=== PATIENT | male | born 1975 | race Caucasian/White ===

== ENCOUNTER → 2018-07-20 16:52 | Outpatient (CLI) | payer OTHER, SELFPAY | PROVIDERS: Family Provider Internal Medicine; PCP Internal Medicine; Referring Provider Nurse Practitioner Adult Health; Visit Provider Nurse Practitioner Adult Health | DX: Z20.2 Contact with and (suspected) exposure to infections with a predominantly sexual mode of transmission (principal) ==

== ENCOUNTER → 2018-09-01 07:28 | Outpatient (CLI) | payer OTHER, SELFPAY ==
[2018-09-01 11:19] LABS: BUN 10 mg/dL (7-18); Creatinine, Serum 0.71 mg/dL (0.70-1.30); Glucose 67 mg/dL (74-106)
[2018-09-01 11:20] LABS: Anion Gap 8 (5-15); BUN/Creat Ratio 14.1 RATIO (10-20); Calcium,Total 8.6 mg/dL (8.5-10.1); Chloride 105 mmol/L (98-107); Cholesterol 181 mg/dL (200); EST Glomerular Filtration Rate 128 mL/min (>60); Est Glom Filt Rate - Afr Amer 155 mL/min (>60); High Density Lipoprotein 67 mg/dL; PSA,Total - Annual Screen 0.52 ng/mL (0.00-4.00); Potassium 3.8 mmol/L (3.5-5.1); Sodium Level 139 mmol/L (136-145); Thyroid Stim Hormone (TSH) 1.12 uIU/mL (0.358-3.74); Triglycerides 66 mg/dL; Very Low Density Lipoprotein 13 mg/dL (5-40)
[2018-09-01 12:32] LABS: Vitamin D,25 Hydroxy 20.2 ng/mL (29.95-100.01)
--- OUTSIDE RECORDS SUMMARY | 2018-11-05 14:33 | XMS RPT_ITS ---
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 LAB L501.1000 7-18 mg/dL Normal BUN 10 LAB L501.1100 0.70-1.30 mg/dL Normal CREAT,SERUM 0.71 Result Comment: The validity of the calculated GFR AND GFRAA in patients over 70 years has not been determined. Clinical correlation is essential. LAB L501.1110 >60 mL/min Normal EST GFR 128 Result Comment: Non- GFR Calc LAB L501.1115 >60 mL/min Normal EST GFR - AA 155 Result Comment: GFR Calc LAB L501.1300 10-20 RATIO Normal BUN/CRE 14.1 LAB L501.2200 8.5-10.1 mg/dL CA Normal 8.6 LAB L501.5300 136-145 mmol/L NA Normal 139 LAB L501.5600 3.5-5.1 mmol/L K Normal 3.8 LAB L501.5900 98-107 mmol/L CL Normal 105 LAB L501.6100 21.0-32.0 mmol/L Normal CO2 26.0 LAB L501.6200 5-15 Normal GAP 8 Performed By: #### L500.2500, L500.4100, L501.9520, L501.9910, L506.1000, L509.3000 #### [facility] [address] [place], [place], [id number] LIPID PROFILE Collected: 09/01/2018 Status: F Source: [place] 7:32 AM [facility] REPOSITORY TYPE CODE TESTS RESULT OUT OF RANGE REFERENCE UNITS LAB L501.4900 200 mg/dL Normal CHOL 181 Result Comment: <200 mg/dL Desirable 200-240 mg/dL Borderline >240 mg/dL High Risk LAB L501.5000 mg/dL Normal TRIG 66 Result Comment: The drugs N-Acetylcysteine and Metamizole may falsely depress this assay. Serum Triglycerides Reference Interval Normal <150 mg/dL Borderline high 150 - 199 mg/dL High 200 - 499 mg/dL Very High > or = 500 mg/dL LAB L501.6400 mg/dL Normal HDL 67 Result Comment: The drugs N-Acetylcysteine and Metamizole may falsely depress this assay. Reference Range HDL <40 mg/dL Low HDL Cholesterol HDL >or= 60 mg/dL High HDL Cholesterol LAB L501.6500 0-130 mg/dL Normal LDL 101 LAB L501.6600 5-40 mg/dL Normal VLDL 13 Performed By: #### L500.2500, L500.4100, L501.9520, L501.9910, L506.1000, L509.3000 #### [facility] [address] [place], [place], [id number] THYROID STIM HORMONE Collected: 09/01/2018 Status: F Source: S[place]ERSET (TSH) 7:32 AM [facility] REPOSITORY TYPE CODE TESTS RESULT OUT OF RANGE REFERENCE UNITS LAB L501.9520 0.358-3.74 uIU/mL Normal TSH 1.12 Performed By: #### L500.2500, L500.4100, L501.9520, L501.9910, L506.1000, L509.3000 #### [facility] [address] [place], [address] PSA,TOTAL - ANNUAL Collected: 09/01/2018 Status: F Source: SH[place] SCREEN 7:32 AM [facility] REPOSITORY TYPE CODE TESTS RESULT OUT OF RANGE REFERENCE UNITS LAB L501.9910 0.00-4.00 ng/mL Normal PSA,TOT 0.52 SCREEN Result Comment: This test was performed using the TPSA assay method for the [employer] chemistry system. Values obtained with different assay methods cannot be used interchangably. When changing PSA assays in the course of monitoring a patient, additional sequential testing should be carried out to confirm baseline values. Performed By: #### L500.2500, L500.4100, L501.9520, L501.9910, L506.1000, L509.3000 #### [facility] [address] [place], [address] VITAMIN D,25 HYDROXY Collected: 09/01/2018 Status: F Source: SHRUTI 7:32 AM [facility] REPOSITORY TYPE CODE TESTS RESULT OUT OF REFERENCE UNITS RANGE LAB L506.1000 29.95-100.01 ng/mL Low Vitamin D 20.2 25-OH Result Comment: Vitamin D 25(OH) Status Range Deficiency <20 ng/mL (50nmol/L) Insuffciency 20 - 30 ng/mL (50 - 75 nmol/L) Sufficiency 30 - 100 ng/mL (75 - 250 nmol/L) Toxicity >100 ng/mL (>250 nmol/L) Performed By: #### L500.2500, L500.4100, L501.9520, L501.9910, L506.1000, L509.3000 #### [facility] [address] [place], [address] TESTOSTERONE, SERUM TOTAL Collected: 09/01/2018 Status: F Source: SHRUTI 7:32 AM [facility] REPOSITORY TYPE CODE TESTS RESULT OUT OF REFERENCE UNITS RANGE LAB L509.3000 ng/dL Testosterone Normal 752.93 Result Comment: NORMAL REFERENCE RANGES MALE AGE <50 123.06 - 813.86 ng/dL MALE AGE >50 89.98 - 780.10 ng/dL FEMALE PREMENOPAUSE AGE 21 - 60 9.01 - 47.94 ng/dL FEMALE POSTMENOPAUSE AGE 45 - 89 <7.00 - 45.62 ng/dL REFERENCE RANGE AND METHODOLOGY CHANGED 08/03/2017 Performed By: #### L500.2500, L500.4100, L501.9520, L501.9910, L506.1000, L509.3000 #### [facility] [address] [place], [address] MISCELLANEOUS LAB Collected: 07/20/2018 Status: F Source: SHRUTI PROCEDURE 9:00 AM [facility] REPOSITORY Order Comment: Comments: [id number] URINE UREAPLASMA/MYCOPLASMA Test(s) Ordered: [id number] URINE UREAPLASMA/MYCOPLASMA TYPE CODE TESTS RESULT OUT OF RANGE REFERENCE UNITS LAB L801.1541 Normal [facility] LAB TEST Result Comment: TEST RESULT UNITS REF INTERVAL Ureaplasma/Mycoplasma hominis Ureaplasma urealyticum Negative Mycoplasma hominis Negative TESTING PERFORMED AT [facility]. ORIGINAL REPORT ON FILE IN LAB CONTAINS ADDITIONAL TEST SITE INFORMATION. Performed By: #### L801.1541 #### [facility] [address] [place], [address] ALLERGIES ALLERGIES No Allergies Records FoundENCOUNTERS ENCOUNTERS ADMIT/DISCHARGE ACCOUNT ADMITTING ENCOUNTER LOCATION SOURCE NUMBER CLASS 09/01/2018 [id number] Ambulatory [facility] 07/20/2018 [id number] [facility] ing:[facility] Repository PAYERS PAYERS ENCOUNTER GUARANTOR PAYER SUBSCRIBER SOURCE 09/01/2018 ETHAN Gonsalez Primary ETHAN Reid [id number] Insurance:CIGNAPolicy BARNARDDOB: [facility] SCOVEL Number: [id number] [id number] Repository [address]Qyu: [phone]) Date:[id number] [phone] () [place], [place] [address]DJ: 09/01/2018 Secondary NOT GIVENUNK [place] Insurance:SELF PAY [facility] Number: Effective Repository Date:2018-09-01 07/20/2018 ETHAN Gonsalez Primary ETHAN Reid [id number] Insurance:CIGNAPolshamay [facility]: [id number], [place] [id number] Repository [address]Utn: [phone]) Date:[id number] [phone] () [id number], [place] [address]LI: 07/20/2018 Secondary NOT GIVENUNK [place] Insurance:SELF PAY [facility] Number: Effective Repository Date:2018-07-20
== END ==
PROVIDERS: Family Provider Family Medicine; PCP Family Medicine; Referring Provider Family Medicine; Visit Provider Family Medicine
DX: Z13.220 Encounter for screening for lipoid disorders (principal); F32.9 Major depressive disorder, single episode, unspecified; N52.9 Male erectile dysfunction, unspecified
CPT/HCPCS: 36415; 80048; 80061; 82306; 84153; 84403; 84443; G0103

== ENCOUNTER → 2018-09-12 17:22 | Outpatient (CLI) | payer OTHER, SELFPAY ==
--- NOTE | 2018-09-12 17:25 | RAD_ITS ---
STUDY: X-RAY - CERVICAL SPINE REASON FOR EXAM: Male, 43 years old. Neck pain TECHNIQUE: 7 view(s) of the cervical spine were obtained including flexion and extension lateral views. COMPARISON: None FINDINGS: Normal anterior atlantoaxial articulation. Normal odontoid process. Normal cervical lordosis. Normal vertebral bodies. Minimal spurring at the mid cervical endplates. Normal disc space heights. Normal visualized intervertebral neuroforamina. The soft tissue structures are unremarkable. Slightly limited flexion. RAD/Cerv Spine Obl/Flex/Ext Comp IMPRESSION: No acute bony injury of the cervical spine. Limited flexion. Electronically Signed: Anthony Corrales DO at 23:58 EST Tel [phone], Service support ,
== END ==
PROVIDERS: Family Provider Family Medicine; PCP Family Medicine; Referring Provider Family Medicine; Visit Provider Family Medicine
DX: M54.2 Cervicalgia (principal)
CPT/HCPCS: 72052

== ENCOUNTER 2018-09-25 15:30 | Outpatient (RCR) | payer OTHER, SELFPAY ==
--- NOTE | 2018-09-20 10:14 | HP.PTEVAL_ITS ---
Patient's Visit Information ETHAN HEAD is a 43 year old M referred to Physical Therapy by Jamel Noel MD with a diagnosis of NECK PAIN. Date of Evaluation: 09/20/18 Physical Therapist: Ananth Ortega PT, Cert MDT, OCS - Visit Plan Frequency: 2x /Week Duration: 4 Weeks Plan: MANUAL THERAPY OA/AA,THORACIC,US/ICTX 16#-22#,CERVICAL ROM,POSTURAL EX'S - Subjective Findings: This 43 y/o male presenst to physical therapy with neck pain about year. Patient has pain located cervical pain with radiating symptoms in shoulders.Pain desribed as tightness and sharp pain to left . Patient pain worse when driving and turning to left,lifting with arms [place]. Patient denies parathesia/tingling. Denies ZAZUETA,diziness,tinnutus. patient sleeping okay. No prior treatment. No trauma. Patient seen Dr solis PT did x-rays. Pain in cervical spine affects working out. Patient pain affects QOL and function. 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 SOCAIL: single - Pain Bilateral Neck Pain Intensity (Out of 10): 3 Pain Intensity Range: 10 Bilateral Scapula Pain Intensity (Out of 10): 4 Pain Intensity Range: 10 - Objective POSTURE: mild foward head. NEURO: intact ,reflexes C5-6-7 2/3 ,MYTOMES intact. PALAPTION: tender UT/levator. CERVICAL ROM: flexion min/mod tight,extension min/mod tight,left rotation mod loss ,right min loss,retraction WFL,protrusion min loss. MMT: 4/5 grossly - Special Tests C/S Radiculapathy - Left Upper limb tension test: Negative C/S Radiculapathy - Right Upper limb tension test: Negative C/S Radiculapathy - Left Spurlings: Positive C/S Radiculapathy - Right Spurlings: Negative C/S Radiculapathy - Left Cervical distraction: Negative C/S Radiculapathy - Right Cervical distraction: Negative C/S Radiculapathy - Left Relief test: Negative C/S Radiculapathy - Right Relief test: Negative Sharp Shelton: Negative Vertebral Artery Test: Negative Alar Ligament Test: Negative Cervical Sitting: Protrusion - Mechanical Response: No effect Cervical Sitting: Protrusion - Symptoms During Testing: No effect Cervical Sitting: Protrusion - Symptoms After Testing: No effect Cervical Sitting: Retraction - Mechanical Response: No effect Cervical Sitting: Retraction - Symptoms During Testing: No effect Cervical Sitting: Retraction - Symptoms After Testing: No effect - Goals Goal 1:: Independant with HEP Goal Time Frame: 4-6 Weeks Goal 2:: Independant with posture for ADL'S Goal Time Frame: 4-6 Weeks Goal 3:: Decrease cervical pain by 60% or greater to improve function Goal Time Frame: 4-6 Weeks Goal 4:: Patient to improve cervical ROM to improve function of recovery especially to left to improve driving Goal Time Frame: 4-6 Weeks Goal 5:: Patient to improve cervical ARNOLDO score by 5 points to improve QOL. Goal Time Frame: 4-6 Weeks - Rehabilitation Potential Physical Therapy Diagnosis: This patient has upper cervical spine dysfunction with poor cervical ROM to left ,flexion and pain affects QOL ,job demnads working out and function. Rehabilitation Potential: Good - Anticipated Interventions Patient/Client Instruction: Educate patient on: Condition, Plan of Care For the Purpose of:: To decrease pain, To increase ROM, To improve muscle performance and motor function, To improve ability to perform ADL's, To increase tolerance to activity/condition/position, To improve ability of physical actions for home/community/work/leisure, To improve health of tissue, To decrease soft tissue restriction, To increase flexibility/ROM, To improve safety, To improve ability to perform tasks related to life management Therapeutic Exercise to Include: Strength training, Postural training, Flexibilty training, Active ROM, William Exercises For the Purpose of:: To decrease pain, To increase ROM, To improve muscle performance and motor function, To increase tolerance to activity/condition/position, To improve ability of physical actions for home/community/work/leisure, To improve health of tissue, To decrease soft tissue restriction, To increase flexibility/ROM, To reduce risk of recurrence, To improve ability to perform tasks related to life management Manual Therapy Techniques to Include: Mobilization Comment: CERVICAL SPINE OA/AA,TRACTION For the Purpose of:: To decrease pain, To increase ROM, To improve nutrient delivery to tissue, To increase oxygenation perfusion, To improve health of tissue, To decrease soft tissue restriction TENS: Yes IF ES: Yes Thermo therapy (hot pack): Yes Ultrasound (thermal/non thermal): Yes Intermittent cervical traction: Yes - 16#-22# For the Purpose of:: To decrease pain, To increase ROM, To improve nutrient delivery to tissue, To increase oxygenation perfusion, To improve health of tissue, To decrease soft tissue restriction Thank you for the opportunity to evaluate your patient. For Medicare and Medicare HMO plans, please review the plan of care and approve it. It will need to be FAXED BACK to us at [phone] for Medicare purposes. For Medicare only, by signing this I certify the plan of care. Please let me know if there are questions or concerns regarding this plan of care. Physician Signature: Date:
--- NOTE | 2018-11-22 10:50 | HP.PTDCNRP_ITS ---
HP - Discharge Summary (1) - Patient Information ETHAN HEAD was seen in my office for initial evaluation on 09/20/18. The following Plan of Care was established for this patient: Initial Frequency: 2x /Week Initial Duration: 4 Weeks - Anticipated Interventions Patient/Client Instruction: Educate patient on: Condition, Plan of Care For the Purpose of:: To decrease pain, To increase ROM, To improve muscle performance and motor function, To improve ability to perform ADL's, To increase tolerance to activity/condition/position, To improve ability of physical actions for home/community/work/leisure, To improve health of tissue, To decrease soft tissue restriction, To increase flexibility/ROM, To improve safety, To improve ability to perform tasks related to life management Therapeutic Exercise to Include: Strength training, Postural training, Flexibilty training, Active ROM, William Exercises For the Purpose of:: To decrease pain, To increase ROM, To improve muscle performance and motor function, To increase tolerance to activity/condition/position, To improve ability of physical actions for home/community/work/leisure, To improve health of tissue, To decrease soft tissue restriction, To increase flexibility/ROM, To reduce risk of recurrence, To improve ability to perform tasks related to life management Manual Therapy Techniques to Include: Mobilization Comment: CERVICAL SPINE OA/AA,TRACTION For the Purpose of:: To decrease pain, To increase ROM, To improve nutrient d elivery to tissue, To increase oxygenation perfusion, To improve health of tissue, To decrease soft tissue restriction TENS: Yes IF ES: Yes Thermo therapy (hot pack): Yes Ultrasound (thermal/non thermal): Yes Intermittent cervical traction: Yes - 16#-22# For the Purpose of:: To decrease pain, To increase ROM, To improve nutrient delivery to tissue, To increase oxygenation perfusion, To improve health of tissue, To decrease soft tissue restriction This patient was last seen in our office 09/25/18. Pertinent comments regarding their Physical therapy will appear below: Patient seen for PT for neck pain focusing on manual therapy ,traction,postural ex's,but is d/c. At this point I will be discontinuing this patient from physical therapy. I would be happy to see this patient again in the future if found appropriate by the physician. Thank you! Ananth Ortega, PT, Cert MDT, OCS
== END 2018-09-25 19:00 | disposition home or self-care (01) ==
LOC: PT 15:30
PROVIDERS: Family Provider Family Medicine; PCP Family Medicine; Referring Provider Family Medicine; Visit Provider Family Medicine
DX: M54.2 Cervicalgia (principal)
CPT/HCPCS: 97012; 97014; 97140; 97161; G0283